=== PATIENT | female | born 1990 | race Caucasian/White ===

== ENCOUNTER 2017-12-17 19:04 | Emergency (ER) | payer MEDICAID, OTHER ==
[2017-12-17 19:23] VITALS: BMI 26.4
[2017-12-17 19:29] VITALS: TEMP 97.9
[2017-12-17] MEDS: Albuterol-Ipratrop 3 mg / 0.5 (3 ml) UD IH SCH ×6 (19:30→21:59)
--- NOTE | 2017-12-17 20:18 | ED PDOC ---
Arrival/HPI - General Chief Complaint: Respiratory Distress Time Seen by Provider: 12/17/17 19:21 Historian: Patient - History of Present Illness Narrative History of Present Illness (Text): 12/17/17 22:33 27 F with history of asthma which required one hospitalization (without intubation) states this morning she noticed she had increased difficulty breathing, as a result she took her claritin, singulair, and aerospan, patient states she ran out of her albuterol. Due to symptoms not improving patient came to the Emergency department. Denies fevers, chills, seasonal allergies, sick contacts, nausea, vomiting, diarrhea, chest pain, palpitations, dizziness. Past Medical History - Provider Review Nursing Documentation Reviewed: Yes - Past History Past History: Non-Contributing - Infectious Disease Hx of Infectious Diseases: None - Tetanus Immunization Tetanus Immunization: Unknown - Cardiac Hx Cardiac Disorders: No - Pulmonary Hx Respiratory Disorders: Yes Hx Asthma: Yes - Endocrine/Metabolic Hx Endocrine Disorders: No - Hematological/Oncological Hx Blood Disorders: No - Musculoskeletal/Rheumatological Hx Falls: No - Psychiatric Hx Psychophysiologic Disorder: Yes Hx Anxiety: No Hx Bipolar Disorder: No Hx Depression: Yes Hx Emotional Abuse: No Hx Hallucinations: No Hx Panic Disorder: No Hx Post Traumatic Stress Disorder: No Hx Psychosis: No Hx Physical Abuse: No Hx Schizophrenia: No Hx Sexual Abuse: No Hx Substance Use: No - Anesthesia Hx Anesthesia: No Hx Anesthesia Reactions: No Hx Malignant Hyperthermia: No - Suicidal Assessment Feels Threatened In Home Enviroment: No Family/Social History - Physician Review Nursing Documentation Reviewed: Yes Family/Social History: Other (non-contributory) Smoking Status: Former Smoker Hx Alcohol Use: No Hx Substance Use: No Allergies/Home Meds Allergies/Adverse Reactions: Allergies No Known Allergies Allergy (Verified 12/17/17 19:23) Home Medications: Home Meds Medication Instructions Recorded Confirmed Citalopram [celeXA] 10 mg PO DAILY 12/17/17 12/17/17 Flunisolide [Aerospan] 1 puff INH PRN PRN 12/17/17 12/17/17 Loratadine [Claritin] 10 mg PO DAILY 12/17/17 12/17/17 Montelukast Sodium [Singulair] 10 mg PO DAILY 12/17/17 12/17/17 Review of Systems - Review of Systems Constitutional: absent: Fatigue, Fevers Eyes: absent: Vision Changes, Photophobia ENT: absent: Hearing Changes, Tinnitus Respiratory: SOB, Wheezing. absent: Cough, Sputum Cardiovascular: absent: Chest Pain, Palpitations Gastrointestinal: absent: Abdominal Pain, Diarrhea, Nausea, Vomiting Genitourinary Female: absent: Dysuria Musculoskeletal: absent: Arthralgias, Back Pain Skin: absent: Rash Neurological: absent: Headache, Dizziness Endocrine: Normal Hemo/Lymphatic: Normal Psychiatric: Normal Physical Exam Vital Signs Reviewed: Yes Vital Signs Temp Pulse Resp BP Pulse Ox 12/17/17 20:35 101 H 18 96 12/17/17 19:28 97.9 F 99 H 20 110/76 95 Temperature: Afebrile Blood Pressure: Normal Pulse: Regular Respiratory Rate: Normal Appearance: Positive for: Well-Appearing, Non-Toxic, Comfortable Pain Distress: None Mental Status: Positive for: Alert and Oriented X 3 - Systems Exam Head: Present: Atraumatic, Normocephalic Pupils: Present: PERRL Extroacular Muscles: Present: EOMI Conjunctiva: Present: Normal Mouth: Present: Moist Mucous Membranes Respiratory/Chest: Present: Wheezes. No: Clear to Auscultation, Accessory Muscle Use (upper and lower lobes), Rhonchi Cardiovascular: Present: Regular Rate and Rhythm, Normal S1, S2. No: Murmurs Abdomen: No: Tenderness, Distention, Normal Bowel Sounds Upper Extremity: Present: Normal Inspection. No: Edema Lower Extremity: Present: Normal Inspection. No: Edema Neurological: Present: GCS=15, CN II-XII Intact, Speech Normal Skin: Present: Warm, Normal Color Psychiatric: Present: Alert, Oriented x 3, Normal Insight, Depressed Mood Medical Decision Making ED Course and Treatment: 12/17/17 22:37 Patient was given two sets of q15 duonebs x 3 as well as 125 mg solu-medrol; patient responded appropriately, wheezing has resolved. Patient will be discharged with albuterol and medrol dose pack. Re-evaluation Time: 22:37 - RAD Interpretation Radiology Orders: 12/17/17 19:55 CXR [CHEST PORTABLE] [RAD] Stat - Medication Orders Current Medication Orders: Discontinued Medications Albuterol/Ipratropium (Duoneb 3 Mg/0.5 Mg (3 Ml) Ud) 3 ml IH Q15M FAZAL Stop: 05/18/18 20:01 Last Admin: 12/17/17 19:53 Dose: 3 ml Albuterol/Ipratropium (Duoneb 3 Mg/0.5 Mg (3 Ml) Ud) 3 ml IH Q15M FAZAL Stop: 12/17/17 22:01 Last Admin: 12/17/17 21:59 Dose: 3 ml Methylprednisolone (Solu-Medrol) 125 mg IVP STAT STA Stop: 12/17/17 19:25 Last Admin: 12/17/17 19:49 Dose: 125 mg IVP Administration Document 12/17/17 19:49 AD (Rec: 12/17/17 19:49 AD [id number]) Charges for Administration # of IVP Administrations 1 Disposition/Present on Arrival - Present on Arrival Any Indicators Present on Arrival: No History of DVT/PE: No History of Uncontrolled Diabetes: No Urinary Catheter: No History of Decub. Ulcer: No History Surgical Site Infection Following: None - Disposition Have Diagnosis and Disposition been Completed?: Yes Diagnosis: Asthma Disposition: HOME/ ROUTINE Disposition Time: 22:39 Patient Plan: Discharge Patient Problems: Current Active Problems Problem Status Onset Asthma Acute Condition: GOOD Discharge Instructions (ExitCare): Asthma, Adult (DC) Additional Instructions: Sandy, thank you for letting us take care of you today.The emergency medical care you received today was directed at your acute symptoms. If you were prescribed any medication, please fill it and take as directed. It may take several days for your symptoms to resolve. Return to the Emergency Department if your symptoms worsen, do not improve, or if you have any other problems. Please contact your doctor or call one of the physicians/clinics you have been referred to that are listed on the Patient Visit Information form that is included in your discharge packet. Bring any paperwork you were given at discharge with you along with any medications you are taking to your follow up visit. Our treatment cannot replace ongoing medical care by a primary care provider (PCP) outside of the emergency department. Thank you for allowing the [facility] team to be part of your care today. Prescriptions: Albuterol HFA [Ventolin HFA 90 mcg/actuation (8 g)] 1 puff INH Q4 PRN #1 inhaler PRN Reason: Shortness Of Breath Methylprednisolone [Medrol Dose Pack (21 tabs)] 4 mg PO DAILY #21 mg Forms: [employer] (Estonian)
[2017-12-17 20:36] VITALS: RESP 18
[2017-12-17 23:04] VITALS: BP 112/82; PULSE 100; O2SAT 98
--- NOTE | 2017-12-18 09:48 | RAD ---
HISTORY: Asthma COMPARISON: 08/20/2013 FINDINGS: LUNGS: No active pulmonary disease. PLEURA: No significant pleural effusion identified, no pneumothorax apparent. CARDIOVASCULAR: Normal. OSSEOUS STRUCTURES: No significant abnormalities. VISUALIZED UPPER ABDOMEN: Normal. OTHER FINDINGS: None. IMPRESSION: No active disease. No significant interval change compared to the prior examination(s).
== END 2017-12-17 22:59 | disposition home or self-care (01) ==
LOC: ED 19:04
DX: J45.909 Unspecified asthma, uncomplicated (principal); Z87.891 Personal history of nicotine dependence
CPT/HCPCS: 71045; 81025; 94640; 96374; 99284; J2930

== ENCOUNTER 2018-09-16 19:23 | Emergency (ER) | payer OTHER ==
[2018-09-16 19:24] VITALS: BMI 26.4
[2018-09-16 20:09] VITALS: RESP 18; O2SAT 100
--- NOTE | 2018-09-16 20:18 | ED PDOC ---
Arrival/HPI - General Chief Complaint: Shortness Of Breath Time Seen by Provider: 09/16/18 20:04 Historian: Patient - History of Present Illness Narrative History of Present Illness (Text): 09/16/18 20:15 27 y/o female, pmh including asthma, nkda, c/o coughing and wheezing x 3 days with no recent traveling. Pt. has been having coughing, associated with wheezing, feels like the usual asthma, no night sweat, no dizziness, no change in vision, no numbness or tingling, no palpitation, no diarrhea, no other medical or psychological complaints. Past Medical History - Provider Review Nursing Documentation Reviewed: Yes - Past History Past History: Non-Contributing - Infectious Disease Hx of Infectious Diseases: None - Tetanus Immunization Tetanus Immunization: Unknown - Reproductive Currently : No - Cardiac Hx Cardiac Disorders: No - Pulmonary Hx Respiratory Disorders: Yes Hx Asthma: Yes - Endocrine/Metabolic Hx Endocrine Disorders: No - Hematological/Oncological Hx Blood Disorders: No - Musculoskeletal/Rheumatological Hx Falls: No - Psychiatric Hx Psychophysiologic Disorder: Yes Hx Anxiety: No Hx Bipolar Disorder: No Hx Depression: Yes Hx Emotional Abuse: No Hx Hallucinations: No Hx Panic Disorder: No Hx Post Traumatic Stress Disorder: No Hx Psychosis: No Hx Physical Abuse: No Hx Schizophrenia: No Hx Sexual Abuse: No Hx Substance Use: No - Anesthesia Hx Anesthesia: No Hx Anesthesia Reactions: No Hx Malignant Hyperthermia: No - Suicidal Assessment Feels Threatened In Home Enviroment: No Family/Social History - Physician Review Nursing Documentation Reviewed: Yes Family/Social History: Unknown Family HX Smoking Status: Former Smoker Hx Alcohol Use: No Hx Substance Use: No Allergies/Home Meds Allergies/Adverse Reactions: Allergies No Known Allergies Allergy (Verified 09/16/18 19:57) Home Medications: Home Meds Medication Instructions Recorded Confirmed Citalopram [celeXA] 10 mg PO DAILY 12/17/17 12/17/17 Flunisolide [Aerospan] 1 puff INH PRN PRN 12/17/17 12/17/17 Loratadine [Claritin] 10 mg PO DAILY 12/17/17 12/17/17 Montelukast Sodium [Singulair] 10 mg PO DAILY 12/17/17 12/17/17 Review of Systems - Review of Systems Constitutional: absent: Fatigue, Fevers Eyes: absent: Vision Changes ENT: absent: Hearing Changes Respiratory: Cough, Wheezing. absent: SOB, Sputum Cardiovascular: absent: Chest Pain Gastrointestinal: absent: Abdominal Pain, Nausea, Vomiting Skin: absent: Rash, Pruritis Neurological: absent: Headache Psychiatric: absent: Anxiety, Depression, Suicidal Ideation Physical Exam Vital Signs Reviewed: Yes Vital Signs Temp Pulse Resp BP Pulse Ox 09/16/18 20:09 97.8 F 87 18 119/81 100 09/16/18 19:52 97.9 F 92 H 19 120/81 97 Temperature: Afebrile Blood Pressure: Normal Pulse: Regular Respiratory Rate: Normal Appearance: Positive for: Well-Appearing, Non-Toxic, Comfortable Pain Distress: None Mental Status: Positive for: Alert and Oriented X 3 - Systems Exam Head: Present: Atraumatic, Normocephalic Pupils: Present: PERRL Extroacular Muscles: Present: EOMI Conjunctiva: Present: Normal Mouth: Present: Moist Mucous Membranes Nose (External): Present: Atraumatic. No: Abrasion, Contusion, Laceration, Lesions Nose (Internal): Present: Normal Inspection, No Active Bleeding. No: Rhinorrhea, Septal Hematoma, Epistaxis Neck: Present: Normal Range of Motion, Trachea Midline. No: Meningeal Signs, MIDLINE TENDERNESS, Paraspinal Tenderness, Lymphadenopathy Respiratory/Chest: Present: Wheezes, Decreased Breath Sounds. No: Respiratory Distress, Accessory Muscle Use, Rales, Retracting, Rhonchi, Tachypneic, Tender to Palpation Cardiovascular: Present: Regular Rate and Rhythm, Normal S1, S2. No: Murmurs Abdomen: No: Tenderness, Distention, Peritoneal Signs, Rebound, Guarding Back: Present: Normal Inspection Upper Extremity: Present: Normal Inspection. No: Cyanosis, Edema Lower Extremity: Present: Normal Inspection. No: Edema Neurological: Present: GCS=15, CN II-XII Intact, Speech Normal, Motor Func Grossly Intact, Gait Normal, Memory Normal Skin: Present: Warm, Dry, Normal Color. No: Rashes Lymphatic: No: Cervical Adenopathy Psychiatric: Present: Alert, Oriented x 3, Normal Insight, Normal Concentration Medical Decision Making ED Course and Treatment: 09/16/18 20:23 -duoneb/prednisone/azithromycin -chest xray 09/16/18 20:55 -Urine hcg is negative -chest ray show ER wet read: no active disease -pt. feels well, relief with medication -Discharge home with zithromax, prednisone, albuterol MDI, singulair, bromfed dm, stay hydrated, follow up with your own pmd within 2 days, return to the ER for any new or worsening signs or symptoms. - RAD Interpretation Radiology Orders: no active disease [employer] Specialist: Radiologist - PA / THERMOMETER TESTER / Resident Statement MD/DO has reviewed & agrees with the documentation as recorded. Disposition/Present on Arrival - Present on Arrival Any Indicators Present on Arrival: No History of DVT/PE: No History of Uncontrolled Diabetes: No Urinary Catheter: No History of Decub. Ulcer: No History Surgical Site Infection Following: None - Disposition Have Diagnosis and Disposition been Completed?: Yes Diagnosis: Bronchitis, Asthma Disposition: HOME/ ROUTINE Disposition Time: 20:24 Patient Plan: Discharge Condition: IMPROVED Discharge Instructions (ExitCare): Acute Bronchitis Additional Instructions: -Discharge home with zithromax, prednisone, albuterol MDI, singulair, bromfed dm, stay hydrated, follow up with your own pmd within 2 days, return to the ER for any new or worsening signs or symptoms. Prescriptions: Albuterol HFA [Ventolin HFA 90 mcg/actuation (8 g)] 2 puff IH [id number] PRN #1 puff PRN Reason: Other Azithromycin [Zithromax] 250 mg PO DAILY #4 tab Brompheniramine/Pseudoephed/Dm [Bromfed Dm Cough 118 ml] 10 ml PO QID PRN #250 ml PRN Reason: Other Montelukast [Singulair] 10 mg PO DAILY #10 tab Prednisone 50 mg PO DAILY #4 tablet Referrals: Eladio Hill JD, MD [Primary Care Provider] - Follow up with primary Nate Willoughby MD [Staff Provider] - Follow up with primary Forms: [employer] (Ukrainian), WORK NOTE
[2018-09-16] MEDS ORDERED: Albuterol-Ipratrop 3 mg / 0.5 (3 ml) UD ONE (20:25)
[2018-09-16] MEDS: Albuterol-Ipratrop 3 mg / 0.5 (3 ml) UD IH SCH (20:50)
[2018-09-16 21:09] VITALS: BP 110/78; PULSE 82; TEMP 97.9
--- NOTE | 2018-09-17 09:24 | RAD ---
Date of service: 09/16/2018 HISTORY: Medical clearance COMPARISON: Comparison chest 12/17/2017 FINDINGS: LUNGS: No active pulmonary disease. PLEURA: No significant pleural effusion identified, no pneumothorax apparent. CARDIOVASCULAR: No aortic atherosclerotic calcification present. Normal cardiac size. No pulmonary vascular congestion. OSSEOUS STRUCTURES: No significant abnormalities. VISUALIZED UPPER ABDOMEN: Normal. OTHER FINDINGS: None. IMPRESSION: No active disease.
== END 2018-09-16 21:08 | disposition home or self-care (01) ==
LOC: ED 19:23
DX: J45.909 Unspecified asthma, uncomplicated (principal); Z87.891 Personal history of nicotine dependence